=== PATIENT | male | born 1985 | race Caucasian/White ===

== ENCOUNTER 2020-03-31 11:09 | Emergency (ER) | payer OTHER ==
[2020-03-31 12:25] LABS: Potassium 4.2 mmol/L (3.5-5.1)
[2020-03-31] MEDS ORDERED: MORPHINE 4 MG/ML SYR ONE (12:28)
[2020-03-31] MEDS ORDERED: NA CHLORIDE 0.9% 1,000 ML ONE (12:28)
[2020-03-31] MEDS ORDERED: ONDANSETRON 4 MG/2 ML VIAL ONE (12:28)
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
[2020-03-31] MEDS ORDERED: HYDROCODONE/APAP 7.5/325 MG TAB ONE (13:56)
[2020-03-31 14:05] VITALS: BP 117/83; TEMP 98; O2SAT 97
== END 2020-03-31 13:56 | disposition home or self-care (01) ==
LOC: ER 11:09
DX: M54.5 Low back pain (principal); S30.810A Abrasion of lower back and pelvis, initial encounter; V29.3XXA Motorcycle rider (driver) (passenger) injured in unspecified nontraffic accident, initial encounter; Y93.I9 Activity, other involving external motion; Y92.9 Unspecified place or not applicable
CPT/HCPCS: 80048; 36415; 82565; 70450; 72125; 71260; 74177; 96375; 96374; 99284; Q9967; J7030; J2405